=== PATIENT | female | born 1975 | race Caucasian/White ===

== ENCOUNTER 2022-01-18 13:48 | Outpatient (CLI) | payer OTHER, SELFPAY ==
--- NOTE | 2022-01-18 | USCV_ITS ---
Cira Evans Age: 46 Gender: F : 1975 Exam Date: 01/18/2022 14:14 Ordering Phys: Jr Montoya Technologist: TANIA [place] [facility] [place]: pad Risk Factors: Previous Vascular Surgery: RIGHT LEFT Waveform Velocity (cm/s) Velocity (cm/s) Waveform Triphasic 107.2 Iliac Prox 124.3 Triphasic Triphasic 124.3 Iliac Mid 125.8 Triphasic Triphasic 122.9 Iliac Distal 110.1 Biphasic Triphasic 137.9 MOTOR AND GENERATOR BRUSH MAKER 117.2 Triphasic Triphasic 121.5 SFA Prox 120.1 Triphasic Triphasic 122.9 SFA Mid 121.5 Triphasic Triphasic 118.6 SFA Dist 128.6 Triphasic Triphasic 161.5 POP 105.8 Triphasic Triphasic 97.0 MIDDLE SCHOOL FRENCH TEACHER 75.3 Triphasic Triphasic 89.8 DPA 93.7 Triphasic 0.9 RAYNA 1.1 FINDINGS Minimally diminished resting RAYNA of 0.9 on the right side Normal resting RAYNA of 1.1 on the left side. Normal arterial Doppler waveforms bilaterally CONCLUSIONS No significant arterial obstruction based on the above findings. Slightly diminished resting RAYNA on the right side could be a technical error. Clinical correlation is recommended Dr Raheem Sinha MD [facility] (Electronically Signed) Final Date: 19 January 2022 10:53 S
== END 2022-01-18 13:49 | disposition home or self-care (01) ==
LOC: RAD 13:52
PROVIDERS: Family Provider Family Medicine; PCP Nurse Practitioner; Visit Provider Nurse Practitioner
DX: I73.9 Peripheral vascular disease, unspecified (principal)
CPT/HCPCS: 93925

== ENCOUNTER → 2023-01-21 13:48 | Outpatient (BNVA) | payer OTHER, SELFPAY | PROVIDERS: Family Provider Family Medicine; PCP Nurse Practitioner; Visit Provider Podiatrist Foot & Ankle Surgery | DX: I73.9 Peripheral vascular disease, unspecified (principal); M21.621 Bunionette of right foot; L84 Corns and callosities; E11.42 Type 2 diabetes mellitus with diabetic polyneuropathy; Z79.4 Long term (current) use of insulin | CPT/HCPCS: 73630 ==

== ENCOUNTER 2023-01-31 13:22 | Outpatient (CLI) | payer OTHER, SELFPAY ==
--- NOTE | 2023-01-31 13:45 | USCV_ITS ---
Cira Evans Age: 47 Gender: F : 1975 Exam Date: 01/31/2023 14:07 Ordering Phys: Chang Farris DPM Technologist: Sasha Culver Exam Location: [facility] [place] Indication: Ulcer plantar surface Rt foot Risk Factors: DM Previous Vascular Surgery: None RIGHT LEFT BP: 144.0 / 77.00 BP: 138.0/ 78.00 0 0 Waveform Velocity (cm/s) Velocity (cm/s) Waveform Triphasic 137.8 Iliac Prox 108.2 Triphasic Triphasic 90.6 Iliac Mid 81.1 Triphasic Triphasic 79.8 Iliac Distal 87.4 Triphasic Triphasic 84.6 SNAP SHEARER 84.3 Triphasic Triphasic 61.8 SFA Prox 87.4 Triphasic Triphasic 70.9 SFA Mid 80.6 Triphasic Triphasic 62.9 SFA Dist 77.5 Triphasic Triphasic 70.1 POP 80.1 Triphasic Monophasic 42.7 RESIDENT CARE TECHNICIAN 39.1 Triphasic Monophasic 19.8 DPA 52.1 Biphasic RAYNA 0.9 0.7 FINDINGS rt well logging mud analysis captain 90 rt dpa 100 lt dpa 130 lt well logging mud analysis captain 120 Abnormal Doppler waveforms in the infrapopliteal vessels on the right side Resting RAYNA of 0.7 on the right side Resting RAYNA of 0.9 on the left side CONCLUSIONS 1. Abnormal resting RAYNA and Doppler waveforms on the right side suggesting moderate peripheral artery disease, involving the infrapopliteal vessels. 2. Minimally diminished resting RAYNA on the left side with slightly abnormal Doppler waveforms suggesting mild peripheral artery disease on the left side, involving the infrapopliteal vessels. Compared to the study from 01/18/2022, there is a significant decline in the RAYNA on the right side. Consider exercise RAYNA to better evaluate the functional status, if clinically indicated. Dr Raheem Sinha MD [facility] (Electronically Signed) Final Date: 01 February 2023 15:27 S
== END 2023-01-31 13:23 | disposition home or self-care (01) ==
PROVIDERS: PCP Nurse Practitioner; Visit Provider Podiatrist Foot & Ankle Surgery
DX: E11.621 Type 2 diabetes mellitus with foot ulcer (principal); L97.509 Non-pressure chronic ulcer of other part of unspecified foot with unspecified severity
CPT/HCPCS: 93925

== ENCOUNTER 2023-02-26 15:20 | Outpatient (CLI) | payer OTHER, SELFPAY ==
--- NOTE | 2023-02-26 15:30 | CT_ITS ---
WS: [id number] CTA ABDOMINAL AORTA WITH RUNOFF TECHNIQUE: Contrast enhanced CTA bilateral lower extremity runoff. Multiplanar reformatted images wer e obtained. MIP reformats were also reviewed. CLINICAL INFORMATION: Moderate PAD right lower extremity--worsening COMPARISON: None. DLP: 541.[address] scans at [facility] use at least one of these dose optimization techniques: automated e xposure control; mA and/or kV adjustment per patient size (includes targeted exams where dose is matc hed to clinical indication); or iterative reconstruction. FINDINGS: Bulky fibroid uterus. Nabothian cysts in the cervix. Normal sigmoid colon. Distal abdominal aorta glenn ears normal. RIGHT: RIGHT common iliac artery is patent. External and internal iliac arteries are patent. RIGHT co mmon femoral artery is patent. Superficial femoral and deep femoral arteries are patent. Tapered sten osis RIGHT popliteal artery which is essentially occluded at the level of the knee. Collateral flow s upplies the tibioperoneal trunk and calf arteries. Overall diminished caliber of the popliteal artery . Three-vessel runoff to the ankle with diminutive calf arteries. Tiny peroneal artery. LEFT: Mild stenosis of the LEFT common iliac artery origin external and internal iliac arteries are p atent. Common femoral and superficial femoral arteries are patent. Deep femoral artery is patent. Pop liteal artery is patent. Three-vessel runoff to the ankle. [place] [id number] IMPRESSION: 1. RIGHT: Somewhat diminutive popliteal artery with tapered stenosis and short segment occlusion at the level of the knee joint. Collateral flow supplies the tibioperoneal trunk and calf arteries with diminutive three-vessel runoff to t he ankle. Tiny peroneal artery. 2. LEFT: Mild stenosis of the LEFT common iliac artery origin. Otherwise karen l LEFT lower extremity runoff. 3. Bulky fibroid uterus. This can be followed up with ultrasound.
[2023-02-26] MEDS: iohexol 350 mg/mL 500 mL Btl (per mL) IV (16:08)
== END 2023-02-26 15:21 | disposition home or self-care (01) ==
PROVIDERS: PCP Nurse Practitioner; Visit Provider Podiatrist Foot & Ankle Surgery
DX: I73.9 Peripheral vascular disease, unspecified (principal); L98.499 Non-pressure chronic ulcer of skin of other sites with unspecified severity; I70.8 Atherosclerosis of other arteries; D25.9 Leiomyoma of uterus, unspecified
CPT/HCPCS: 73706; Q9967

== ENCOUNTER 2024-01-29 05:39 | Day surgery (SDC) | payer OTHER, SELFPAY ==
[2024-01-29] VITALS (10 sets, daily range): BP systolic 129–144; BP diastolic 54–76; PULSE 74–90; RESP 14–17; TEMP 36.2–36.8; O2SAT 97–100; BMI 29.1
--- NOTE | 2024-01-29 | XR_ITS ---
WS: [id number] INTRAOPERATIVE TECHNIQUE: 2 Spot fluoroscopic images for intraoperative purposes. FLUOROSCOPY TIME: 4 seconds CLINICAL INFORMATION: GORDY PICS FINDINGS: Postoperative changes osteotomy distal fifth metatarsal IMPRESSION: Images obtained for intraoperative purposes.
[2024-01-29] MEDS: sodium chloride 0.9% 1,000 ML 30 ML IV (06:24)
[2024-01-29] MEDS: acetaminophen 1,000 MG/100 ML PIGGYBACK 400 MG IV (06:44)
[2024-01-29] MEDS: gabapentin 300 mg Capsule PO (06:45)
--- NOTE | 2024-01-29 06:45 | W.PM.OPSUD ---
Surgery/Procedure H&P Update DATE OF PROCEDURE: January 29, 2024 DATE H&P PERFORMED: 01/06/24 H&P UPDATE INFORMATION: I have reviewed H&P completed within last 30 days, I have examined patient prior to procedure, No changes to prior documentation and [place] [facility] [place] indicated PREOP DIAGNOSIS: Tailor's bunion right foot PLANNED PROCEDURE: Operation Date: 01/29/24 07:10 Proposed Procedures p Metarsal Head Resection/ Right foot fifth metatarsal head resection(Right) - Chang Farris DPM
[2024-01-29 07:02] LABS: Anion Gap 16.7 (5-19); Blood Urea Nitrogen 11 mg/dL (6-20); Calcium 8.9 mg/dL (8.5-10.5); Carbon Dioxide 25 mmol/L (22-29); Chloride 103 mmol/L (98-107); Glomerular Filtration Rate 106.3 mL/min (90-130); Glucose 93 mg/dL (65-115); Osmolality Calculated 291 mOsm/kg (285-295); Potassium 3.7 mmol/L (3.5-5.1); Sodium 141 mmol/L (136-145)
[2024-01-29] MEDS: ceFAZolin 2,000 MG in sodium chloride 0.9% (plus) 50 ML 100 MG IV (07:07)
[2024-01-29] MEDS: BUPivacaine 0.5% INJ 30 mL INJECTION (07:15)
--- NOTE | 2024-01-29 07:51 | P.ANESASSM_ITS ---
Pre-Anesthetic Assessment Height/Weight: Height 1.65 m Weight 79.379 kg Temp Pulse Resp BP Pulse Ox O2 Del Method 97.8 F 84 17 144/66 100 Room Air 01/29/24 06:04 01/29/24 06:04 01/29/24 06:04 01/29/24 06:04 01/29/24 06:04 01/29/24 06:05 Preop Diagnosis: Tailor's bunion right foot Operation Date: 01/29/24 07:10 Proposed Procedures p Metarsal Head Resection/ Right foot fifth metatarsal head resection(Right) - Chang Farris DPM Familial anesthetic complications: None Was Beta Santi taken within 24 hours: N/A Was Clonidine taken within 24 hours: N/A Last intake: Intake Last Liquid Date 01/28/24 Last Liquid Time 23:30 Last Solid Date 01/28/24 Last Solid Time 19:00 Social No alcohol and No tobacco Exam alert, oriented x 3, clear to auscultation bilaterally and regular rate & rhythm Airway Mallampati: Class III Dentition: false CV/HEM Hypertension Metabolic Diabetes Mellitus and Hyperlipidemia Anesthetic Plan ASA status: 3 Anesthesia: General Other: RSI for trulicity on 01/25 Risk of > 500 ml blood loss (7ml/kg in children): No Medications/Allergies Home Medications Medication Instructions Recorded Confirmed Last Taken Type Diabetic shoes with 3 pairs of #1 ea 12/24/22 01/06/24 Unknown Rx inserts dulaglutide 0.75 mg/0.5 mL 1.5 mg SUBCUT 6XD 12/31/22 01/28/24 01/26/24 History subcutaneous pen injector (Trulicity) empagliflozin 25 mg tablet 25 mg PO DAILY 12/31/22 01/28/24 01/28/24 History (Jardiance) gabapentin 100 mg capsule 300 mg PO TID 12/31/22 01/28/24 01/28/24 History hydrochlorothiazide 12.5 mg tablet 12.5 mg PO DAILY 12/31/22 01/28/24 01/28/24 History metformin 500 mg tablet 500 mg PO BID 12/31/22 01/28/24 01/28/24 History rosuvastatin 10 mg tablet 10 mg PO DAILY 12/31/22 01/28/24 01/28/24 History sitagliptin phosphate 100 mg 100 mg PO DAILY 12/31/22 01/28/24 01/28/24 History tablet (Januvia) Diabetic Shoes with 3 pairs of #1 ea 08/05/23 01/06/24 Unknown Rx Custom Inserts aspirin 81 mg capsule 81 mg PO DAILY 01/28/24 01/28/24 01/27/24 History clopidogrel 75 mg tablet (Plavix) 75 mg PO DAILY 01/28/24 01/28/24 01/28/24 History potassium chloride 10 mEq 10 meq PO DAILY 01/28/24 01/28/24 01/28/24 History capsule,extended release hydrocodone 5 mg-acetaminophen 325 1 tab PO Q6H PRN pain #20 tabs 01/29/24 Unknown Rx mg tablet Allergies Allergy/AdvReac Type Severity Reaction Status Date / Time oxycodone Allergy ADR-Vomitin Verified 01/29/24 05:59 g adhesive tape Allergy ADR-Itching Uncoded 01/29/24 05:59 Current Medications Generic Name Dose Route Start Last Admin Trade Name Freq PRN Reason Stop Dose Admin Sodium Chloride 1,000 mls @ 30 mls/hr 01/29/24 06:00 01/29/24 06:24 Sodium Chloride 0.9% IV 01/30/24 05:59 30 mls/hr .Q24H [place] Administration Data Anesthesia 01/29/24 06:20 BMP 01/29/24 06:20 Sodium 141 Potassium 3.7 Chloride 103 Carbon Dioxide 25 BUN 11 Creatinine 0.6 Glucose 93 Calcium 8.9 Cardiac Studies: 2 No Data to Display
--- NOTE | 2024-01-29 07:58 | W.PM.BPON ---
Date of procedure: 01/29/2024 Surgeon name: Callie ArshadPDonald Oracle Application Architect(s) name(s): Daryl Procedure(s) performed: Right foot fifth metatarsal head resection Description of findings: Tailor's bunion right foot Estimated blood loss: 5 cc Tourniquet time: 20 minutes Specimen(s) removed: Fifth metatarsal head right foot Post-operative diagnosis: Tailor's bunion right foot
--- NOTE | 2024-01-29 07:59 | PM.OP ---
Operative Report Date of procedure: January 29, 2024 Pre-op diagnosis: Right foot tailor's bunion Post-op diagnosis: Same Post-op findings: Tailor's bunion right foot Procedure done: Right foot fifth metatarsal head resection CPT 99900 Surgeon: Chang Farris DPM Sourcing Coordinator: Daryl Estimated blood loss: 5 cc 20 Complications: None Findings: See above Procedure: Patient is a 48-year-old female that has a history of right foot tailor's bunion. The patient has had the aforementioned chief complaint for some time. Conservative treatment measures have been attempted and the patient has opted for surgical intervention at this time. A lengthy discussion regarding the procedure, including risks and complications has been had with the patient and is noted in the recent clinic note. Written and verbal consent have been obtained. All patient questions have been answered to the patient?s satisfaction. No written or verbal guarantees have been given or implied. The patient has been NPO since midnight. The history has been reviewed and the history and physical is current. The signed consent was confirmed and placed in the patient chart. Patient imaging has been reviewed and is consistent with the diagnosis. Under mild sedation, the patient was brought into the operating room and left on the gurney in the supine position. IV antibiotics were given by the anesthesia team as preoperative surgical prophylaxis. IV sedation was then performed by the anesthesiateam. A local field block was performed using 0.5% Marcaine plain. A pneumatic tourniquet was then placed about the right ankle. The operative extremity was then prepped and draped in the usual fashion. The extremity was then elevated and exsanguinated before the tourniquet was inflated to 250 mmHg. After inflation, the following procedure was then performed. Attention was directed to the dorsal lateral aspect of the right foot overlying the fifth metatarsal. A 4.5 cm incision was made overlying the fifth metatarsal head using a #15 blade. Dissection was carried down through subcutaneous the superficial fascia to the level of the fifth metatarsal phalangeal joint capsule. This was incised and dissected out to expose the fifth metatarsal head in its entirety. After exposure of the fifth metatarsal head a sagittal bone saw was used to resect the head of the fifth metatarsal head. The fifth metatarsal head was then grasped with a [place] and using a #15 sharp dissection was carried out to remove the fifth metatarsal head from the operative field. This was sent to pathology as surgical specimen. Hemostasis was achieved via electrocautery. The incision site was irrigated with copious edward of sterile saline before attention was directed to closure. Deep tissue was closed with 4-0 Vicryl followed by skin closure with 4-0 nylon in horizontal mattress fashion. The tourniquet was let down good hyperemic response was noted to all digits of the right foot. The incision was dressed with Xeroform, 4 x 4 gauze, Kerlix, Roberto. The patient tolerated the procedure and anesthesia well and without complication. The patient was transported from the operating room to the recovery room with vital signs stable and vascular status intact to all digits of the right foot. The patient was given both written and verbal instructions to remain weightbearing as tolerated to the operative extremity, to keep dressings/splint clean, dry and intact and to take pain medication as directed. The patient will follow-up in the outpatient setting at their scheduled appointment. The patient was discharged with my personal number and was instructed to call if any questions or issues should arise. They were discharged home once anesthesia criteria was met.
--- NOTE | 2024-01-29 09:00 | ANE.PACU2 ---
Inpatient post-anesthesia follow up: Airway intact: Yes Vital signs: Temperature 98.3 F Pulse Rate 77 Respiratory Rate 17 Blood Pressure 131/65 Pulse Oximetry 99 Oxygen Delivery Me thod Room Air Oxygen Flow Rate Fraction of Inspir ed Oxygen Hydration adequate: Yes Nausea and vomiting: No Pain level: 1 Mental status: Baseline
== END 2024-01-29 09:03 | disposition home or self-care (01) ==
PROVIDERS: Anesthesiology; PCP Nurse Practitioner; Visit Provider Podiatrist Foot & Ankle Surgery
PROC: (CPT 28113; principal; 2024-01-29 07:00)
DX: M21.621 Bunionette of right foot (principal); I10 Essential (primary) hypertension; E11.9 Type 2 diabetes mellitus without complications; E78.5 Hyperlipidemia, unspecified; Z79.82 Long term (current) use of aspirin
CPT/HCPCS: 28113; 36415; 73620; 76000; 80048; 88307; 88311; J0131; J0330; J0690; J1100; J1200; J2405; J2704; J3010; J3490; J7030

== ENCOUNTER → 2024-02-05 15:17 | Outpatient (BNVA) | payer OTHER, SELFPAY | PROVIDERS: PCP Nurse Practitioner; Visit Provider Podiatrist Foot & Ankle Surgery | DX: M21.621 Bunionette of right foot (principal); E11.69 Type 2 diabetes mellitus with other specified complication; L84 Corns and callosities; I73.9 Peripheral vascular disease, unspecified; Z79.84 Long term (current) use of oral hypoglycemic drugs | CPT/HCPCS: 73630 ==

== ENCOUNTER 2024-10-14 09:31 | Outpatient (CLI) | payer OTHER, SELFPAY ==
--- NOTE | 2024-10-14 09:37 | CT_ITS ---
WS: [id number] LDCT LUNG CANCER SCREENING HISTORY: HX OF TOBACCO USE/NICOTINE DEPENDENCE, CIGARETTES TECHNIQUE: Axial imaging performed from the apices to 1 cm below the costophrenic angles. Coronal and sagittal reformats are submitted with axial MIP series. All CT scans at [facility] use at least one of these dose optimization techniques: automated exposure control; mA and/or kV adjustment per patient size (includes targeted exams where dose is matched to clinical indication); or iterativ e reconstruction. DLP: 63.41 mGy.cm DIvol: Mean CTDIvol: 1.30 (mGy) COMPARISON: None available. Diagnostic quality: Satisfactory Lungs: Tiny micronodule periphery RIGHT lower lobe. No mass or concerning nodule. No pneumonia. Very slight hyperinflation. Heart: Normal size heart with no pericardial effusion.. Other findings: Very minimal atherosclerosis aorta.: Near small hiatal hernia. No adrenal mass. CT/CT lung screening [id number] IMPRESSION: LUNG-RADS: 2-Benign Appearance or Behavior FOLLOW UP: 12 Month: Continue annual screening with LDCT OTHER FINDINGS (S MODIFIER): None.
== END 2024-10-14 09:32 | disposition home or self-care (01) ==
LOC: RAD 09:33
PROVIDERS: PCP Nurse Practitioner; Visit Provider Nurse Practitioner Family
DX: Z12.2 Encounter for screening for malignant neoplasm of respiratory organs (principal); R91.1 Solitary pulmonary nodule
CPT/HCPCS: 71271

== ENCOUNTER 2024-11-09 12:18 | Outpatient (CLI) | payer OTHER, SELFPAY ==
--- NOTE | 2024-11-09 12:19 | MM_ITS ---
WS: [id number] BILATERAL 3D TOMOSYNTHESIS DIGITAL SCREENING MAMMOGRAPHY WITH CAD CLINICAL INFORMATION: SCREENING HISTORY: Screening mammogram. No current complaints. COMPARISON: Baseline TECHNIQUE: Bilateral CC and MLO views. FINDINGS: The breasts are composed of heterogeneous fibroglandular density tissue, which can limit the detectio n of small underlying mass lesions. No suspicious mass, asymmetry, calcifications, or architectural d istortion. No evidence of malignancy. Punctate cluster calcifications outer LEFT breast. A few incide ntal punctate calcifications. MM/MM [facility] tomosynthesis [id number] IMPRESSION: DENSITY: The breasts are heterogeneously dense, which may obscure small masses. BI-RADS: 2 - Benign FOLLOW UP: 1 Year Follow-up Recommend return to annual screening mammography.
== END 2024-11-09 12:19 | disposition home or self-care (01) ==
LOC: RAD 12:18
PROVIDERS: PCP Nurse Practitioner; Visit Provider Nurse Practitioner Family
DX: Z12.31 Encounter for screening mammogram for malignant neoplasm of breast (principal); R92.333 Mammographic heterogeneous density, bilateral breasts; R92.1 Mammographic calcification found on diagnostic imaging of breast
CPT/HCPCS: 77063; 77067